=== PATIENT | female | born 1985 | race Caucasian/White ===

== ENCOUNTER 2023-01-22 11:17 | Emergency (ER) | payer BC ==
[~2023-01-22] VITALS: Ht 154.9 cm; Wt 80.3 kg
[2023-01-22 11:38] VITALS: BP 142/82
[2023-01-22 12:08] LABS: BASOPHILS ABSOLUTE AUTO 0.05 K/mm3 (0.00-0.23); BASOPHILS PERCENT AUTO 1 % (0-2); EOSINOPHILS ABSOLUTE AUTO 0.09 K/mm3 (0.00-0.68); EOSINOPHILS PERCENT AUTO 2 % (0-6); Hematocrit 39.3 % (33.0-51.0); Hemoglobin 13.4 g/dL (11.5-16.0); IMMATURE GRAN ABSOLUTE AUTO 0.01 K/mm3 (0.00-0.10); IMMATURE GRAN PERCENT AUTO 0 % (0-1); LYMPHOCYTES ABSOLUTE AUTO 1.66 K/mm3 (0.84-5.20); LYMPHOCYTES PERCENT AUTO 31 % (21-46); MONOCYTES ABSOLUTE AUTO 0.58 K/mm3 (0.16-1.47); MONOCYTES PERCENT AUTO 11 % (4-13); Mean Corpuscular HGB 29.9 pg (26.0-34.0); Mean Corpuscular HGB Conc 34.1 g/dL (31.5-36.5); Mean Corpuscular Volume 88 fL (80-100); Mean Platelet Volume 9.1 fL (9.1-12.4); NEUTROPHILS ABSOLUTE AUTO 3.01 K/mm3 (1.96-9.15); NEUTROPHILS PERCENT AUTO 56 % (41-73); Platelet Count 302 K/mm3 (150-400); RDW Coefficient Variation 13.6 % (11.7-14.2); RDW Standard Deviation 43.9 fL (35.1-46.3); Red Blood Cell Count 4.48 M/mm3 (3.80-5.20)
[2023-01-22 12:42] LABS: Albumin/Globulin Ratio 1.2 (0.8-1.8); Bilirubin, Total 0.3 mg/dL (0.1-1.0); Bun/Creatinine Ratio 13.8 (12.0-20.0); Calcium, Blood 8.7 mg/dL (8.5-10.1); Creatinine, Blood 0.65 mg/dL (0.40-1.00); Globulin, Blood 3.4 g/dL (2.2-4.0); Potassium, Blood 3.5 mmol/L (3.5-5.5); Total Protein, Blood 7.4 g/dL (6.4-8.2)
== END 2023-01-22 14:15 | disposition home or self-care (01) ==
LOC: ER 11:17
PROVIDERS: Student in an Organized Health Care Education/Training Program
DX: O34.01 Maternal care for unspecified congenital malformation of uterus, first trimester (principal); Q51.28 Other and unspecified doubling of uterus; O20.8 Other hemorrhage in early pregnancy; Z3A.01 Less than 8 weeks gestation of pregnancy
CPT/HCPCS: 76801; 76817; 80053; 84702; 85025; 86850; 86900; 86901

== ENCOUNTER → 2023-02-11 | Outpatient (CLI) | payer BC ==
[2023-02-11 15:13] LABS: Source, Urine Voided
[2023-02-11 16:22] LABS: BASOPHILS ABSOLUTE AUTO 0.05 K/mm3 (0.00-0.23); BASOPHILS PERCENT AUTO 1 % (0-2); EOSINOPHILS ABSOLUTE AUTO 0.04 K/mm3 (0.00-0.68); EOSINOPHILS PERCENT AUTO 1 % (0-6); Hematocrit 39.7 % (33.0-51.0); Hemoglobin 13.5 g/dL (11.5-16.0); IMMATURE GRAN ABSOLUTE AUTO 0.02 K/mm3 (0.00-0.10); IMMATURE GRAN PERCENT AUTO 0 % (0-1); LYMPHOCYTES ABSOLUTE AUTO 1.47 K/mm3 (0.84-5.20); LYMPHOCYTES PERCENT AUTO 20 % (21-46); MONOCYTES ABSOLUTE AUTO 0.64 K/mm3 (0.16-1.47); MONOCYTES PERCENT AUTO 9 % (4-13); Mean Corpuscular Volume 88 fL (80-100); Mean Platelet Volume 9.5 fL (9.1-12.4); NEUTROPHILS ABSOLUTE AUTO 5.13 K/mm3 (1.96-9.15); NEUTROPHILS PERCENT AUTO 70 % (41-73); Platelet Count 356 K/mm3 (150-400); RDW Coefficient Variation 13.7 % (11.7-14.2); RDW Standard Deviation 44.3 fL (35.1-46.3); White Blood Cell Count 7.35 K/mm3 (4.00-11.30)
[2023-02-11 16:36] LABS: Bacteria Many /hpf; Red Blood Cells, Urine 0-2 /hpf (0-2); Squamous Epithelial Cells Mod /hpf (Few)
[2023-02-12 09:12] LABS: HBSAG SCREEN Negative (Negative); HCV ANTIBODY Non Reactive (Non Reactive)
[2023-02-14 09:40] LABS: HIV AB/P24 AG SCREEN Non Reactive
== END | disposition home or self-care (01) ==
LOC: LAB 14:47 → LAB SHORT 14:47
PROVIDERS: Advanced Practice Midwife
DX: O09.521 Supervision of elderly multigravida, first trimester (principal)
CPT/HCPCS: 81015; 84443; 85025; 86592; 86762; 86803; 86850; 86900; 86901; 87086; 87340; 87389

== ENCOUNTER → 2023-04-08 | Outpatient (CLI) | payer BC ==
[2023-04-11 15:10] LABS: AFP MOM 0.68 (.); AFP VALUE 20.7 ng/mL (.); GEST. AGE ON COLLECTION DATE 16.3 weeks (.); INSULIN DEP DIABETES No (.); MATERNAL AGE AT EDD 37.3 yr (.); MULTIPLE GESTATION No (.); OSBR RISK 1 IN 10000 (.); RACE Other (.); TEST RESULTS: *Screen Negative* (.); WEIGHT 188 lbs (.)
== END | disposition home or self-care (01) ==
LOC: LAB SHORT 13:19 → LAB 13:19
PROVIDERS: Advanced Practice Midwife
DX: O09.521 Supervision of elderly multigravida, first trimester (principal)
CPT/HCPCS: 82105

== ENCOUNTER → 2023-05-10 | Outpatient (CLI) | payer BC ==
[2023-05-11 12:14] LABS: Candida species (DNA Probe) Positive (NEGATIVE); G. vaginalis (DNA Probe) Negative (NEGATIVE); T. vaginalis (DNA Probe) Negative (NEGATIVE)
== END ==
LOC: LAB 15:19 → LAB SHORT 15:19
PROVIDERS: Advanced Practice Midwife
DX: N76.0 Acute vaginitis (principal)
CPT/HCPCS: 87480; 87510; 87660

== ENCOUNTER → 2023-07-01 | Outpatient (CLI) | payer BC ==
[2023-07-01 17:53] LABS: BASOPHILS ABSOLUTE AUTO 0.03 K/mm3 (0.00-0.23); BASOPHILS PERCENT AUTO 0 % (0-2); EOSINOPHILS ABSOLUTE AUTO 0.06 K/mm3 (0.00-0.68); EOSINOPHILS PERCENT AUTO 1 % (0-6); Hematocrit 36.7 % (33.0-51.0); Hemoglobin 12.5 g/dL (11.5-16.0); IMMATURE GRAN ABSOLUTE AUTO 0.08 K/mm3 (0.00-0.10); IMMATURE GRAN PERCENT AUTO 1 % (0-1); LYMPHOCYTES ABSOLUTE AUTO 1.38 K/mm3 (0.84-5.20); LYMPHOCYTES PERCENT AUTO 17 % (21-46); MONOCYTES ABSOLUTE AUTO 0.59 K/mm3 (0.16-1.47); MONOCYTES PERCENT AUTO 7 % (4-13); Mean Corpuscular HGB 31.9 pg (26.0-34.0); Mean Corpuscular HGB Conc 34.1 g/dL (31.5-36.5); Mean Corpuscular Volume 94 fL (80-100); NEUTROPHILS PERCENT AUTO 74 % (41-73); Platelet Count 270 K/mm3 (150-400); RDW Coefficient Variation 13.4 % (11.7-14.2); RDW Standard Deviation 45.5 fL (35.1-46.3); Red Blood Cell Count 3.92 M/mm3 (3.80-5.20); White Blood Cell Count 8.24 K/mm3 (4.00-11.30)
== END | disposition home or self-care (01) ==
LOC: LAB 16:56 → LAB SHORT 16:56
PROVIDERS: Advanced Practice Midwife
DX: O09.521 Supervision of elderly multigravida, first trimester (principal)
CPT/HCPCS: 82950; 85025

== ENCOUNTER → 2023-07-01 | Outpatient (CLI) | payer BC ==
[2023-07-01 15:20] LABS: Candida species (DNA Probe) Negative (NEGATIVE); G. vaginalis (DNA Probe) Negative (NEGATIVE); T. vaginalis (DNA Probe) Negative (NEGATIVE)
== END | disposition home or self-care (01) ==
LOC: LAB 11:19 → LAB SHORT 11:19
PROVIDERS: Advanced Practice Midwife
DX: N76.0 Acute vaginitis (principal)
CPT/HCPCS: 87480; 87510; 87660

== ENCOUNTER → 2024-10-05 | Outpatient (CLI) | payer BC ==
[~2024-10-05] MED LIST: PRENATAL TABLE1 EAC2 PO
[2024-10-13 08:59] LABS: HPV HIGH RISK BY TMA Not Detected; HPV SOURCE Cervical
== END ==
LOC: LAB 12:54 → LAB SHORT 12:54
PROVIDERS: Advanced Practice Midwife
DX: Z01.419 Encounter for gynecological examination (general) (routine) without abnormal findings (principal)
CPT/HCPCS: 87624; G0123